=== PATIENT | male | born 1965 | race Caucasian/White ===

== ENCOUNTER 2019-11-19 14:59 | Emergency (ER) | payer OTHER ==
[~2019-11-19] VITALS: Ht 180.3 cm; Wt 81.6 kg
[2019-11-19 15:35] VITALS: BP_SYST 132
--- NOTE | 2019-11-19 15:38 | NUR ---
Patient to ER bed 3 to gown for evaluation. Side rails up. Report given to SOPHIA Daniel.
--- NOTE | 2019-11-19 15:50 | NUR ---
Pt injured L finger at home while working in garage with hammer. Pt rates pain 10/10, finger, bruising noted. V/S stable, pt is afebrile. Currently resting in bed, will continue to monitor.
--- NOTE | 2019-11-19 15:55 | NUR ---
ER Dr. Villegas at bedside examining patient.
[2019-11-19] MEDS ORDERED: DIPH-TET-PERTUS Vaccine 0.5 ML VIAL (ADACEL) I.M. ONE (16:00)
[2019-11-19] MEDS ORDERED: cefTRIAXone 1 GM in LIDOCAINE 1%, 20 ML MDV 2.1 ML IM ONE (16:00)
[2019-11-19] MEDS ORDERED: HYDROcodone/ACETAMIN 10-325 MG TAB PO ONE (16:00)
--- NOTE | 2019-11-19 16:52 | NUR ---
Pt resting in gurney, hand being cleaned at this time.
[2019-11-19 18:32] VITALS: BP_SYST 132
--- NOTE | 2019-11-19 18:32 | NUR ---
Patient given written and verbal discharge instructions and verbalizes understanding. ER MD discussed with patient the results and treatment provided. Patient in stable condition. ID arm band removed. IV catheter removed intact and dressing applied, no active bleeding. Rx of [place], Ibuprofen, Keflex given. Patient educated on pain management and to follow up with PMD. Pain Scale 0/10. Opportunity for questions provided and answered. Medication side effect fact sheet provided.
== END 2019-11-19 18:32 | disposition home or self-care (01) ==
LOC: SED 14:59
DX: S62.633A Displaced fracture of distal phalanx of left middle finger, initial encounter for closed fracture (principal); W22.8XXA Striking against or struck by other objects, initial encounter; Y93.89 Activity, other specified; Y92.89 Other specified places as the place of occurrence of the external cause; Y99.8 Other external cause status
CPT/HCPCS: 12002; 73140; 90471; 90715; 96372; 99284; J0696; J2001